=== PATIENT | male | born 1950 | race Caucasian/White ===

== ENCOUNTER 2021-04-01 17:53 | Emergency (ER) | payer BC, OTHER ==
[2021-04-01 19:04] VITALS: TEMP 97.8; BMI 26.6
[2021-04-01 20:33] LABS: BILIRUBIN,TOTAL 0.6 mg/dl (0.2-1); CALCIUM 9.2 mg/dl (8.5-10); CREATININE 1.2 mg/dl (0.55-1.3); TOT PROT 6.5 g/dl (6.4-8.2)
[2021-04-01 21:18] LABS: BASO % 0.8 % (0-2.0); EOS % 6.1 % (0-4.5); HEMATOCRIT 43.1 % (35.4-49); HEMOGLOBIN 14.9 GM/dL (11.7-16.9); LYMPH % 29.3 % (8-40); MCH 31.5 pg (25.7-33.7); MCHC 34.5 g/dl (32.0-35.9); MEAN CELL VOLUME 91.4 fl (80-96); MONO % 11.3 % (3.8-10.2); NEUT % 52.5 % (42.8-82.8); PLATELET COUNT 238 10^3/uL (134-434); RBC 4.72 M/mm3 (4.00-5.60); RDW 12.6 % (11.9-15.9); WHITE BLOOD COUNT 6.9 K/mm3 (4.0-10.0)
[2021-04-01 21:38] VITALS: BP 118/81; PULSE 72
== END 2021-04-01 21:40 | disposition home or self-care (01) ==
LOC: FER 17:53
DX: R07.89 Other chest pain (principal)
CPT/HCPCS: 36415; 80053; 82550; 82553; 84484; 85025; 93005; 99284-25